=== PATIENT | male | born 1955 | race Caucasian/White ===

== ENCOUNTER → 2019-06-13 | Outpatient (CLI) | payer OTHER ==
[~2019-06-13] MED LIST: IOPAMIDOL 76% 100 ML INFUS BTL 100 ML ONE; LISI20TA29 PO; ROSU10TA5 PO
--- NOTE | 2019-06-13 15:22 | RADIOLOGY IMAGING REPORT ---
FACILITY: [facility] PATIENT NAME: Teddy Melgoza : 1955 MR: [id number] V: [id number] EXAM DATE: ORDERING PHYSICIAN: WILMA MELGOZA TECHNOLOGIST: Location: [facility] [place] Patient: Teddy Melgoza : 1955 Visit/Account:[id number] Date of Sevice: 06/13/2019 EXAMINATION: CT Thorax W/Contrast HISTORY: Multiple rib fractures TECHNIQUE: Spiral scan was obtained through the chest during injection of nonionic iodinated intrave nous contrast. One of the following dose optimization techniques was utilized in the performance of this exam: Automated exposure control; adjustment of the mA and/or kV according to the patient's size ; or use of an iterative reconstruction technique. Specific details can be referenced in the [facility]'s radiology CT exam operational policy. Contrast: 75 mL of IV Isovue-370. COMPARISON STUDIES: None. FINDINGS: Lungs / pleura: There is left lower lobe atelectasis. Vague groundglass opacities present in the ad jacent lung, atelectasis versus infiltrate, clinically correlate. [id number] left pleural eff usion is present. This has Hounsfield units suggestive of simple fluid. There is also a tiny left p neumothorax superiomedially and anteriorly. No focal pulmonary nodule identified. Mediastinum / beka: There is no mediastinal mass identified. No mediastinal or hilar adenopathy. Heart / pericardium: Negative Vessels: Scattered calcifications present in the aorta. There is no aneurysm or dissection. Musculoskeletal / Body wall: There are fractures involving ribs 7 through 12 posterolaterally.. Frac ture of the ninth rib is comminuted and fractured in 2 spots with depression of the central fragment. Degenerative changes are present throughout the spine. There is compression of the T11 vertebral b ethel with approximately 50% loss of height, likely chronic based on imaging characteristics. Lymph node assessment: Scattered subcentimeter right axillary lymph nodes are present. There is no significant mediastinal or hilar adenopathy. Lower neck: Negative Upper abdomen: Liver and spleen are unremarkable. Visualized portions of the kidneys are within nor mal limits. Pancreas is grossly normal. IMPRESSION: 1. Fractures of the left seventh through 12th ribs as described above. There is a small to moderate left pleural effusion and small left pneumothorax. 2. Left lower lobe atelectasis. Adjacent groundglass opacity is likely atelectasis although infiltr ate not completely excluded, clinically correlate. 3. No adenopathy or soft tissue masses. 4. T11 compression fracture, this appears to chronic based on imaging, correlate clinically. Report Dictated By: Iris Escalona MD at 06/13/2019 2:51 PM Report E-Signed By: Iris Escalona MD at 06/13/2019 3:15 PM WSN:[id number]
--- NOTE | 2019-06-14 15:22 | RADIOLOGY IMAGING REPORT ---
FACILITY: [facility] - [place] PATIENT NAME: Teddy Melgoza : 1955 MR: [id number] V: [id number] EXAM DATE: ORDERING PHYSICIAN: WILMA MELGOZA TECHNOLOGIST: Location: [facility] - [place] Patient: Teddy Melgoza : 1955 Visit/Account:[id number] Date of Sevice: 06/13/2019 CT ABDOMEN WITH CONTRAST HISTORY: Rib fractures TECHNIQUE: CT images were obtained through the abdomen with intravenous contrast. One of the followi ng dose optimization techniques was utilized in the performance of this exam: automated exposure cont rol; adjustment of the mA and/or kv according to patient size; or use of iterative reconstruction gayathri hnique. Specific details can be referenced in the facility's radiology CT exam operational policy. CONTRAST: 75 cc of Isovue-370 COMPARISON: CT chest 06/13/2019 FINDINGS: Visualized lung bases: Reidentified are multiple displaced left posterior rib fractures. Tiny left a nterior pneumothorax. Small left pleural effusion with adjacent airspace disease. 3 mm right middle l obe pulmonary nodule. Hepatobiliary: 1 cm low-attenuation lesion peripherally within the right lobe the liver, likely a cy st. No perihepatic fluid.. Spleen: No evidence of splenic laceration. Adrenals: Negative. Pancreas: Negative. Kidneys/ureters: 4 mm right renal angiomyolipoma. 8 mm simple cyst within the upper pole the right k idney. No hydronephrosis. Bowel/peritoneum/mesentery: Colonic diverticulosis without acute inflammatory change. No bowel obstr uction, free air or ascites. Vessels: Negative. Lymph nodes: Negative. Bones/body wall: Superior endplate deformity at L1 likely secondary to Schmorl's node or chronic comp ression fracture. Other findings: None significant IMPRESSION: 1. Multiple displaced left posterior rib fractures. Small left pleural effusion with adjacent airspac e disease. Stable tiny left anterior pneumothorax. 2. No evidence of traumatic injury to the abdominal organs or free fluid. 3. Probable chronic compression deformity at L1. Report Dictated By: Gibran Delgado MD at 06/14/2019 3:07 PM Report E-Signed By: Gibran Delgado MD at 06/14/2019 3:13 PM WSN:[id number]
== END ==
LOC: CT 02:00
PROVIDERS: ATTEND Internal Medicine Gastroenterology
DX: S22.42XA Multiple fractures of ribs, left side, initial encounter for closed fracture (principal)
CPT/HCPCS: 36415; 71260; 82565; Q9967; 74160